=== PATIENT | male | born 1950 | race Caucasian/White ===

== ENCOUNTER → 2024-04-22 | Outpatient (CLI) | payer MEDICARE ==
[~2024-04-22] MED LIST: ALEVE 220MG220 MG PO; ASPIRIN E.C. 8181 MG PO; CLARITIN 1010 MG/TAB PO; COMBIRESP IH; COREG 6.256.25 MG/TA PO; DIOVAN 80MG80 MG PO; FERROUS SULFATE65 MG PO; GLUCOPHAGE1000 MG PO; LANTUS100 U/ML SC; MUCINEX 60600 MG/TA1 PO; POTASSIUM75 MG PO; PRILOSEC 20MG20 MG PO; RT ADVAIR 228 DISKUS IH; RT SPIRIVA18 MCG IH; WELCHOL 625MG625 MG PO; ZOCOR 40MG40 MG PO
== END ==
LOC: COL.RAD 14:23
DX: I70.201 Unspecified atherosclerosis of native arteries of extremities, right leg (principal)